=== PATIENT | female | born 1935 | race Caucasian/White ===

== ENCOUNTER → 2019-05-28 | Outpatient (CLI) | payer MEDICARE, OTHER ==
[~2019-05-28] MED LIST: REGADENOSON 0.4 MG/5 ML DISP.SYRIN. IV ONE
--- NOTE | 2019-05-28 12:40 | PCVCIMAG ---
APPROVED REPORT Imaging Protocol: Rest Tc-99m/Stress Tc-99m 1 day Study performed: 05/28/2019 09:23:09 Indication: Abnormal EKG, Dyspnea, Pre-Operative CV evaluation Patient Location: Out-Patient Stress Nurse: Yaa Dennis RN, Rosa Lee RN [place] Tech:ASHLYN MoralesMT Ht: 5 ft 2 in Wt: 199 lbs BSA: 1.91 m2 HR: 81 bpm BP: 149/67 mmHg BMI: 36.39 Rhythm: Sinus Rhythm with T wave abnormalities Medical History Medical History: HTN, Hyperlipidemia, Current Smoker, Obesity Medications: Lasix, Allopurinol, Celebrex, Flexeril, Levothyroxine, Crestor, Tramadol, Triamterene-HCTZ, Lisinopril Allergies: Levaquin Cardiac Risk Factors: Age Pretest Chest Pain Characteristics: No chest pain Exercise History: Sedentary Physical Disabilities: Uses a walker Resting Data Rest SPECT myocardial perfusion imaging was performed in supine position 45 minutes following the intravenous injection of 9.5 mCi of Tc-99m Sestamibi. Time of rest injection: 914 Date: 05/28/2019 Administration Route: IV Administration Site: Right Arm Pharmacologic Stress Pharmacologic stress test was performed by injecting Regadenoson 0.4 mg IV push over 10-15 seconds immediately followed by the intravenous injection of 42.6 mCi of Tc-99m Sestamibi. Time of stress injection: 1030 Date: 05/28/2019 Administration Route: IV Administration Site: Right Arm Gated Stress SPECT was performed 45 minutes after stress injection. The images were gated to evaluate regional wall motion and calculate left ventricular ejection fraction. Stress Test Details Stress Test: Pharmacologic stress testing performed using 0.4 mg of regadenoson per 5 mL given IV over 10 seconds. Reason for pharmacologic stress test: physical limitation, uses a walker. HRMax Heart Rate (APMHR): 137 bpm Resting HR: 81 bpmTarget HR (85% APMHR): 116 bpm Max HR Achieved: 89 bpm % of APMHR: 64 Recovery HR: 86 bpm BP Resting BP: 149/67 mmHg Max BP: 162/72 mmHg Recovery BP: 157/70 mmHg ECG Resting ECG: Sinus Rhythm with T wave abnormalities Stress ECG: Sinus Rhythm with T wave abnormalities ST Change: Non-ischemic Arrhythmia: VPC's Recovery ECG: Sinus Rhythm with T wave abnormalities Clinical Reason for Termination: Completed protocol Stress Symptoms: Dyspnea Symptoms resolved with caffeine. Study Quality Study: Good Study Data Post stress, the left ventricular ejection was 78%.. SSS: 0 SRS: 0 SDS: 0 Perfusion Normal left ventricular perfusion. Normal perfusion on both the stress and rest images. Wall Motion Normal left ventricular wall motion. Nuclear Conclusion ECG Findings: negative for ischemia Clinical Findings: non-diagnostic Nuclear Findings: negative for ischemia Exercise Capacity: not assessed Left Ventricular Function: normal Risk Study: low This study is of low probability for inducible ischemia or prior infarct. Normal global and segmental LV systolic function.
--- NOTE | 2019-05-28 13:00 | PCVCIMAG ---
APPROVED REPORT Study performed: 05/28/2019 08:22:53 EXAM: Comprehensive 2D, Doppler, and color-flow Echocardiogram Patient Location: Echo lab Room #: 2Status: routine BSA: 1.91 HR: 72 bpmBP: 164/86 mmHg Rhythm: NSR Other Information Study Quality: Adequate Risk Factors: Cardiac Risk Factors: HTN, Hyperlipidemia Indications Pre-Op Dyspnea 2D Dimensions IVSd: 8.77 (7-11mm)LVOT Diam: 18.96 (18-24mm) LVDd: 33.04 mm PWd: 10.21 (7-11mm)Ascending Ao: 29.49 (22-36mm) LVDs: 22.35 (25-40mm) Left Atrium: 26.37 (27-40mm) Aortic Root: 24.06 mm LV Single Plane 4CH: 52.34 % LV Single Plane 2CH: 54.73 % Biplane EF: 55.4 % Volumes Left Atrial Volume (Systole) Single Plane 4CH: 36.02 mLSingle Plane 2CH: 29.35 mL Biplane LA Volume: 34.00 mLLA ESV Index: 18.00 mL/m2 Aortic Valve AoV Peak Bruce.: 2.58 m/s AO Peak Gr.: 27.85 mmHgLVOT Max P.55 mmHg AO Mean Gr.: 14.99 mmHgLVOT Mean P.14 mmHg AO V2 Mean: 1.72 m/sLVOT Max V: 1.03 m/s AO V2 VTI: 47.72 cmLVOT Mean V: 0.68 m/s ZAKIA (VTI): 1.25 [id number] V1 VTI: 21.16 cm ZAKIA Vmax: 1.13 cm2 SV (LVOT): 59.69 mL Mitral Valve MV Peak Gr.: 7.57 mmHg MV Mean Gr.: 2.40 mmHgE/A Ratio: 0.7 MV Decel. Time: 184.36 ms MV E Max Bruce.: 0.98 m/s MV A Bruce.: 1.32 m/s MV Max Bruce.: 1.38 m/s MV Mean Bruce.: 0.70 m/s MV VTI: 329.11 mm MVA VTI: 181.36 mm2 MV PHT: 83.87 ms MVA (PHT): 2.62 cm2 IVRT: 107.27 ms TDI E/Lateral E': 16.33E/Medial E': 32.67 Medial E' Bruce.: 0.03 m/s Lateral E' Bruce.: 0.06 m/s Pulmonary Valve PV Peak Bruce.: 1.08 m/sPV Peak Gr.: 4.64 mmHg Pulmonary Vein P Vein S: 0.62 m/sP Vein A: 0.29 m/s P Vein D: 0.44 m/sP Vein A Dur.: 86.5 msec P Vein S/D Ratio: 1.41 Tricuspid Valve TR Peak Bruce.: 1.33 m/s TR Peak Gr.: 7.03 mmHg TV Vmax: 0.56 m/sPA Pressure: 14.00 mmHg Left Ventricle The left ventricle is normal size. There is normal LV segmental wall motion. There is normal left ventricular wall thickness. Left ventricular systolic function is normal. The left ventricular ejection fraction is within the normal range. LVEF is 55-60%. Grade I - abnormal relaxation pattern. Right Ventricle The right ventricle is normal size. The right ventricular systolic function is normal. Atria The left atrium size is normal. The right atrium size is normal. Aortic Valve Aortic valve is trileaflet. Moderate aortic valve sclerosis. No aortic regurgitation is present. Mild aortic stenosis. Peak aortic valve gradient is 27_mmHg. Mitral Valve Moderate mitral annular calcification. The mitral valve leaflets appear mildly thickened with normal leaflet excursion. There is no mitral valve regurgitation noted. No evidence of mitral valve stenosis. Tricuspid Valve The tricuspid valve is normal in structure. Trace tricuspid regurgitation. No pulmonary hypertension. Pulmonic Valve The pulmonary valve is normal in structure. There is no pulmonic valvular regurgitation. Great Vessels The aortic root is normal in size. IVC is normal in size and collapses >50% with inspiration. Pericardium There is no pericardial effusion. <Conclusion> The left ventricle is normal size. There is normal left ventricular wall thickness. Left ventricular systolic function is normal. Grade I - abnormal relaxation pattern. The right ventricle is normal size. The left atrium size is normal. Mild aortic stenosis. Moderate mitral annular calcification. The mitral valve leaflets appear mildly thickened with normal leaflet excursion. Trace tricuspid regurgitation.
== END | disposition home or self-care (01) ==
LOC: PCVCIMAG 08:42
PROVIDERS: ATTEND Internal Medicine Cardiovascular Disease
DX: Z01.818 Encounter for other preprocedural examination (principal); I35.0 Nonrheumatic aortic (valve) stenosis; I10 Essential (primary) hypertension; E78.5 Hyperlipidemia, unspecified; Z88.1 Allergy status to other antibiotic agents
CPT/HCPCS: 78452; 93017; 93306; A9500; G0463; J2785